=== PATIENT | female | born 1950 | race Caucasian/White ===

== ENCOUNTER 2024-03-15 14:10 | Outpatient (CLI) | payer MEDICARE, MEDICAID, SELFPAY ==
--- NOTE | ~2024-03-15 | CT_ITS ---
Non-contrast CT scan of the Abdomen and Pelvis Clinical indication: Abdominal pain Technique: 2.5 mm axial scans were obtained through the abdomen and pelvis without intravenous or or al contrast. Dose reduction technique was used on this scan by utilizing automated exposure control a nd iterative reconstruction technique. The dose-length product (DLP) was 245.33 mGy-cm. Findings: Images through the lung bases reveal no abnormalities. There are probable scattered renovascular other smaller calcifications rather than small stones. No u reteral stone or hydronephrosis on either side. Left renal cyst present. The liver, spleen, pancreas, and adrenals appear normal. Calcified gallstones are present. There are extensive atherosclerotic calcifications of the aorta. Probable area of moderate to high-grade lumina l narrowing of the infrarenal abdominal aorta (axial image 77). There is no evidence of bowel obstruction. Images through the pelvis were performed. There is no evidence of ascites or lymphadenopathy. Urinary bladder unremarkable. No pelvic mass seen. Impression: Cholelithiasis. Extensive atherosclerotic calcification with an area of probable moderate to high-grade luminal narro wing of the infrarenal abdominal aorta. Correlate for any relevant patient's symptomatology. Probable renal vascular calcifications rather than small nonobstructing renal stones. No ureteral sto ne or hydronephrosis. Reviewed, dictated and finalized at [facility]. Impression: Cholelithiasis. Extensive atherosclerotic calcification with an area of probable moderate to hi gh-grade luminal narrowing of the infrarenal abdominal aorta. Correlate for any relevant patient's symptomatology. Probable renal vascular calcifications rather than small nonobstructing renal s tones. No ureteral stone or hydronephrosis.
== END 2024-03-15 14:11 | disposition home or self-care (01) ==
LOC: ANHIMG 14:17
PROVIDERS: PCP Nurse Practitioner Family; Visit Provider Nurse Practitioner Family
DX: R10.31 Right lower quadrant pain (principal); K80.20 Calculus of gallbladder without cholecystitis without obstruction
CPT/HCPCS: 74176